=== PATIENT | male | born 1960 | race Two or more races ===

== ENCOUNTER 2017-01-08 11:30 | Inpatient (IN) | payer MEDICAID, OTHER ==
[2017-01-08 12:41] VITALS: BP 138/89
[2017-01-08] MEDS ORDERED: guaiFENesin 200 MG/10 ML UDC PO PRN (12:59)
[2017-01-08] MEDS: D5-0.45NS 1,000 ML IV SCH (14:35)
[2017-01-08] MEDS: Ipratropium Neb 0.5 mg/2.5 mL UD HHN SCH ×2 (15:58→19:05)
[2017-01-08] MEDS: Albuterol Nebulizer 2.5mg/3mL HHN SCH ×2 (15:58→19:05)
[2017-01-08] MEDS: methylPREDNISolone SS 40 mg Vial IVP SCH (20:42)
[2017-01-08 23:30] LABS: URINE BILIRUBIN NEGATIVE (NEGATIVE); URINE BLOOD MODERATE (NEGATIVE); URINE COLOR YELLOW; URINE GLUCOSE (UA) NEGATIVE (NEGATIVE); URINE KETONE NEGATIVE (NEGATIVE)
[2017-01-08 23:31] LABS: URINE BACTERIA FEW /hpf (NONE SEEN); URINE EPITHELIAL CELLS OCCASIONAL /lpf (FEW); URINE PROTEIN >300 mg/dL (NEGATIVE); URINE UROBILINOGEN 0.2 E.U./dL (0.2 - 1.0)
[2017-01-09] MEDS: methylPREDNISolone SS 40 mg Vial IVP SCH ×3 (04:50→20:48)
[2017-01-09] MEDS: D5-0.45NS 1,000 ML IV SCH (06:40)
[2017-01-09 06:45] LABS: HEMATOCRIT 39.9 % (39.0-49.0); HEMOGLOBIN 13.6 gm/dL (13.2-17.3); MEAN CELL VOLUME 87.5 fl (80-99); MEAN CORPUSCULAR HEMOGLOBIN 29.8 pg (26.0-30.0); MEAN PLATELET VOLUME 9.8 fl; PLATELET COUNT 319 Th/cmm (150-400); RED BLOOD COUNT 4.56 Mil/cmm (4.30-5.70); RED CELL DISTRIBUTION WIDTH 13.3 % (11.5-20.0); WHITE BLOOD COUNT 8.5 Th/cmm (4.8-10.8)
[2017-01-09 07:17] LABS: ALB/GLOB RATIO 0.8 (1.0-1.8); ALKALINE PHOSPHATASE 94 U/L (34-104); ANION GAP 10.6 (7.0-16.0); BILIRUBIN,TOTAL 0.4 mg/dL (0.3-1.0); BUN - UREA NITROGEN 20 mg/dL (7-25); BUN/CREATININE RATIO 18.2; CARBON DIOXIDE 23.1 mEq/L (21.0-31.0); CHLORIDE 107 mEq/L (98-107); CREATININE - SERUM 1.1 mg/dL (0.7-1.3); GLUCOSE 311 mg/dL (70-105); MAGNESIUM 2.1 mg/dL (1.9-2.7); POTASSIUM SERUM 4.7 mEq/L (3.5-5.1); SGOT 14 U/L (13-39); SGPT/ALT 26 U/L (7-52); SODIUM SERUM 136 mEq/L (136-145)
[2017-01-09 07:55] LABS: TSH 0.91 uIU/ml (0.34-5.60)
[2017-01-09 07:56] LABS: NEUTROPHILS 88 % (40-80); PLATELET ESTIMATE ADEQUATE (NORMAL); PLATELET MORPHOLOGY GIANT PLATELETS SEEN (NORMAL); TOTAL CELLS COUNTED 100
[2017-01-09 07:58] LABS: ANISOCYTOSIS 1+
[2017-01-09] MEDS: Albuterol Nebulizer 2.5mg/3mL HHN SCH ×4 (08:25→19:08)
[2017-01-09] MEDS: Ipratropium Neb 0.5 mg/2.5 mL UD HHN SCH ×4 (08:30→19:09)
--- NOTE | 2017-01-09 10:42 | Diagnostic Imaging Report ---
CT scan of the chest without intravenous contrast HISTORY: Shortness of breath, pleural effusions Total DLP equals 275 CTDI equals 6.6 Axial sections were obtained from a level above the clavicles down to level below the diaphragm. There are small to moderate bilateral pleural effusions. Suggestion of faint infiltrate in the lower lobes. Normal-sized lymph nodes are scattered within the mediastinum. No definite hilar abnormalities. Limited sections below the diaphragm demonstrate partial visualization of nonobstructing calculi within the renal pelvic regions bilaterally. IMPRESSION: 1. Small to moderate bilateral pleural effusions. Questionable faint infiltrate within the lower lobes. 2. Somewhat generous heart size 3. Bilateral nonobstructing renal calculi
--- NOTE | 2017-01-09 11:11 | Diagnostic Imaging Report ---
Portable chest x-ray HISTORY: Shortness of breath No acute focal prominent processes. No hilar or mediastinal abnormalities. Allowing for portable technique and a poor inspiration, the overall heart size appears normal. IMPRESSION: 1. No definite acute abnormalities.
--- NOTE | 2017-01-09 15:19 | Internal Medicine Prog Note ---
Internal Medicine Subjective - Subjective Service Date: 01/09/17 (awake, alert, c/o thick secretions ) Patient seen and examined:: with staff Patient is:: awake Internal Medicine Objective - Results Result Diagrams: 01/09/17 06:23 01/09/17 06:23 Recent Labs: Laboratory Last Values WBC 8.5 Th/cmm (4.8-10.8) 01/09/17 06:23 RBC 4.56 Mil/cmm (4.30-5.70) 01/09/17 06:23 Hgb 13.6 gm/dL (13.2-17.3) 01/09/17 06:23 Hct 39.9 % (39.0-49.0) 01/09/17 06:23 MCV 87.5 fl (80-99) 01/09/17 06:23 MCH 29.8 pg (26.0-30.0) 01/09/17 06:23 MCHC Differential 34.0 pg (28.0-36.0) 01/09/17 06:23 RDW 13.3 % (11.5-20.0) 01/09/17 06:23 Plt Count 319 Th/cmm (150-400) 01/09/17 06:23 MPV 9.8 fl 01/09/17 06:23 Neutrophils (Manual) 88 % (40-80) H 01/09/17 06:23 Lymphocytes 12 % (20-50) L 01/09/17 06:23 Platelet Estimate ADEQUATE (NORMAL) 01/09/17 06:23 Platelet Morphology GIANT PLATELETS SEEN (NORMAL) 01/09/17 06:23 Anisocytosis 1+ 01/09/17 06:23 RBC Morph Micro Appear ABNORMAL (NORMAL) 01/09/17 06:23 Sodium 136 mEq/L (136-145) 01/09/17 06:23 Potassium 4.7 mEq/L (3.5-5.1) 01/09/17 06:23 Chloride 107 mEq/L (98-107) 01/09/17 06:23 Carbon Dioxide 23.1 mEq/L (21.0-31.0) 01/09/17 06:23 Anion Gap 10.6 (7.0-16.0) 01/09/17 06:23 BUN 20 mg/dL (7-25) 01/09/17 06:23 Creatinine 1.1 mg/dL (0.7-1.3) 01/09/17 06:23 Est GFR ( Amer) > 60.0 ml/min (>90) 01/09/17 06:23 Est GFR (Non-Af Amer) > 60.0 ml/min 01/09/17 06:23 BUN/Creatinine Ratio 18.2 01/09/17 06:23 Glucose 311 mg/dL (70-105) H 01/09/17 06:23 Hemoglobin A1c % 7.5 % (4.0-6.0) H 01/09/17 06:23 Calcium 9.0 mg/dL (8.6-10.3) 01/09/17 06:23 Magnesium 2.1 mg/dL (1.9-2.7) 01/09/17 06:23 Total Bilirubin 0.4 mg/dL (0.3-1.0) 01/09/17 06:23 AST 14 U/L (13-39) 01/09/17 06:23 ALT 26 U/L (7-52) 01/09/17 06:23 Alkaline Phosphatase 94 U/L (34-104) 01/09/17 06:23 Ammonia 68 umol/L (16-53) H 01/09/17 06:23 Total Protein 6.8 gm/dL (6.0-8.3) 01/09/17 06:23 Albumin 3.1 gm/dL (4.2-5.5) L 01/09/17 06:23 Globulin 3.7 gm/dL 01/09/17 06:23 Albumin/Globulin Ratio 0.8 (1.0-1.8) L 01/09/17 06:23 TSH 0.91 uIU/ml (0.34-5.60) 01/09/17 06:23 Urine Source CLEAN C 01/08/17 23:00 Urine Color YELLOW 01/08/17 23:00 Urine Clarity CLEAR (CLEAR) 01/08/17 23:00 Urine pH 5.0 01/08/17 23:00 Ur Specific [place] 1.020 (1.005-1.030) 01/08/17 23:00 Urine Protein >300 mg/dL (NEGATIVE) H 01/08/17 23:00 Urine Glucose (UA) NEGATIVE mg/dL (NEGATIVE) 01/08/17 23:00 Urine Ketones NEGATIVE mg/dL (NEGATIVE) 01/08/17 23:00 Urine Blood MODERATE (NEGATIVE) H 01/08/17 23:00 Urine Nitrate NEGATIVE (NEGATIVE) 01/08/17 23:00 Urine Bilirubin NEGATIVE (NEGATIVE) 01/08/17 23:00 Urine Urobilinogen 0.2 E.U./dL (0.2 - 1.0) 01/08/17 23:00 Ur Leukocyte Esterase NEGATIVE (NEGATIVE) 01/08/17 23:00 Urine RBC 2-5 /hpf (0-5) H 01/08/17 23:00 Urine WBC 2-5 /hpf (0-5) H 01/08/17 23:00 Ur Epithelial Cells OCCASIONAL /lpf (FEW) 01/08/17 23:00 Urine Bacteria FEW /hpf (NONE SEEN) 01/08/17 23:00 Hyaline Casts 2-5 /lpf (0-2) H 01/08/17 23:00 - Physical Exam Vitals and I&O: Vital Signs Temp 97.5 F 01/09/17 12:06 Pulse 90 01/09/17 12:06 Resp 20 01/09/17 12:06 BP 120/90 01/09/17 12:06 Pulse Ox 97 01/09/17 12:06 Intake & Output 01/08/17 01/09/17 01/09/17 18:59 06:59 18:59 Intake Total 50 1530 50 Output Total 1600 Balance 50 -70 50 Weight (lbs) 168 lb 14.4 oz Intake: Intake, IV Amount 50 1050 50 Cefepime 1 gm In Dextrose 50 50 50 5% 50 ml @ 100 mls/hr IV Q12H [facility] Rx#:[id number] D5-0.45NS 1,000 ml @ 100 1000 mls/hr IV .Q10H [facility] Rx#: [id number] Oral 480 Output: Urine 1600 Active Medications: Current Medications Acetaminophen (Tylenol) 650 mg PO Q4HR PRN PRN Reason: Mild Pain or Fever >101 Stop: 03/09/17 12:58 Albuterol Sulfate (Albuterol 2.5mg/3ml Neb Ud) 2.5 mg HHN QIDRT [facility] Stop: 03/09/17 14:59 Last Admin: 01/09/17 11:25 Dose: 2.5 mg Guaifenesin (Robitussin) 200 mg PO Q4HR PRN PRN Reason: Cough or Congestion Stop: 03/09/17 12:58 Heparin Sodium (Porcine) (Heparin) 5,000 units SUBQ Q12HR [facility] Stop: 03/09/17 20:59 Last Admin: 01/09/17 08:55 Dose: Not Given Cefepime HCl 1 gm/ Dextrose 50 mls @ 100 mls/hr IV Q12H [facility] Stop: 03/09/17 13:59 Last Infusion: 01/09/17 13:30 Dose: Infused Dextrose/Sodium Chloride (D5-0.45ns) 1,000 mls @ 100 mls/hr IV .Q10H [facility] Stop: 03/09/17 12:59 Last Admin: 01/09/17 06:40 Dose: 100 mls/hr Ibuprofen (Motrin) 800 mg PO Q6HR PRN PRN Reason: Pain (Moderate) Stop: 03/09/17 12:57 Ipratropium [place] (Atrovent Neb 0.5mg/2.5ml) 0.5 mg HHN QIDRT [facility] Stop: 03/09/17 14:59 Last Admin: 01/09/17 11:26 Dose: 0.5 mg Meclizine HCl (Antivert) 25 mg PO DAILY PRN PRN Reason: Nausea / Vomiting Stop: 03/09/17 12:58 Methylprednisolone Sodium Succinate (Solu-Medrol) 80 mg IVP Q8HR [facility] Stop: 03/09/17 20:59 Last Admin: 01/09/17 12:44 Dose: 80 mg Ondansetron HCl (Zofran) 4 mg IV Q8H PRN PRN Reason: Nausea / Vomiting Stop: 03/09/17 12:58 Zolpidem Tartrate (Ambien) 10 mg PO HS PRN PRN Reason: Insomnia Stop: 03/09/17 12:58 General: alert HEENT: NC/AT, PERRLA Neck: Supple Lungs: ronchi Cardiovascular: RRR, Normal S1, Normal S2, without murmur Abdomen: soft non-tender, non-distended, positive bowel sound Neurological: no change Internal Medicine Assmt/Plan - Assessment Assessment: COMMUNITY ACQUIRED PNA COUGH NEW ONSET DM - Plan Plan: monitor glucose level add mucomyst cpt f/u labs supplemental o2
[2017-01-09] MEDS: Sodium Chloride 0.45% 1,000 ML IV SCH (17:02)
--- NOTE | 2017-01-09 21:16 | Admit Criteria Form ---
Admit Criteria Forms - Admit Criteria Diagnosis: PNEUMONIA, COMMUNITY ACQUIRED Clinical Indications for Admission to Inpatient Care ( Place 'X' for any and all applicable criteria): Admission is indicated for ANY ONE of the following (1)(2)(3): [ ]I. Hypoxemia indicated by ANY ONE of the following: [ ]a) Oxygen saturation less than 90% while breathing room air [ ]b) PO2 less than 60 mm Hg (8.0 kPa) while breathing room air [ ]c) Chronic lung disease with significant deterioration from baseline oxygenation [X]II. Appropriate diagnostic testing and treatment unavailable in outpatient or recovery facility (eg,testing or infection control measures unavailable(10) [ ]III. Moderate-risk or high-risk category patients (Pneumonia Severity Index (PSI) class IV or V, or CURB-65 score of 3 or greater). [ ]IV. Outpatient treatment failure as indicated by ANY ONE of the following(9) : [ ]a) Failure to respond to antibiotic (eg, resistant organism) [ ]b) Clinically significant adverse effects from medication (eg, vomiting) [ ]c) Complications of pneumonia (eg, empyema, bacteremia) [ ]d) Significant worsening of comorbid cond necessitating inpatient care (eg, chronic heart failure) [ ]V. Intermediate-risk category patients (eg, PSI class III or CURB-65 score 2) who do not improve with initial therapy and observation. [ ]. Immunocompromised patients (eg, AIDS, chronic steroid use) at moderate or high risk based on clinical evaluation. [ ]VII. Complicated pleural effusions (eg, exudative, loculated) [ ]VIII.Hemodynamic instability [ ] IX. Altered mental status that is severe or persistent. [ ]X. Dehydration that is severe or persistent. [ ]XI. Bacteremia [ ]XII. Respiratory finding (eg. tachypnea) that do not respond to outpatient or observation care treatment Extended stay beyond goal length of stay may be needed for (20) [ ]a) Unclear diagnosis [ ]b) Pleural disease [ ]c) Severe pneumonia or treatment failure (25 [ ]d) Respiratory failure (anticipate invasive or noninvasive ventilatory support) [ ]e) Abnormal serum electrolytes (serum Na concentration less than 135 mEq/L (mmol/L) (32)(33) [ ]f) Clinically significant comorbid illness (eg, heart failure, atrial fibrillation with rapid heart rate, alcohol withdrawal, renal insufficiency)(34)(35) [ ]g) Comorbid acute exacerbation of COPD(36) [ ]h) Concomitant diagnosis of malignancy that may be associated with malnutrition, immunologic impairment, or bronchial obstruction. [ ]i) Concomitant altered mental status [ ]j) Culture-identified Gram-negative or antibiotic-resistant organism (eg, Pseudomonas, methicillin-resistant Staphylococcus aureus)(30) [ ]k) Healthcare-associated pneumonia The original [facility] content created by [employer] has been revised. The portions of the content which have been revised are identified through the use of italic text or in bold, and [facility] has neither reviewed nor approved the modified material. All other unmodified content is copyright [facility]. Please see references footnoted in the original [facility] [employer] edition 2016 Admit Criteria Met?: Yes
[2017-01-10] MEDS: methylPREDNISolone SS 40 mg Vial IVP SCH ×3 (04:55→20:34)
[2017-01-10] MEDS: Sodium Chloride 0.45% 1,000 ML IV SCH ×2 (04:57→17:48)
[2017-01-10 05:38] LABS: HEMATOCRIT 37.3 % (39.0-49.0); HEMOGLOBIN 12.8 gm/dL (13.2-17.3); MEAN CELL VOLUME 87.2 fl (80-99); MEAN CORPUSCULAR HEMOGLOBIN 29.9 pg (26.0-30.0); MEAN CORPUSCULAR HGB CONC 34.3 pg (28.0-36.0); MEAN PLATELET VOLUME 9.5 fl; PLATELET COUNT 309 Th/cmm (150-400); RED BLOOD COUNT 4.27 Mil/cmm (4.30-5.70); RED CELL DISTRIBUTION WIDTH 12.9 % (11.5-20.0)
[2017-01-10 05:49] LABS: WHITE BLOOD COUNT 21.2 Th/cmm (4.8-10.8)
[2017-01-10 07:04] LABS: ANISOCYTOSIS 1+; NEUTROPHILS 89 % (40-80); PLATELET ESTIMATE ADEQUATE (NORMAL); PLATELET MORPHOLOGY GIANT PLATELETS SEEN (NORMAL); TOTAL CELLS COUNTED 100
[2017-01-10] MEDS: Albuterol Nebulizer 2.5mg/3mL HHN SCH ×4 (07:13→19:05)
[2017-01-10] MEDS: Ipratropium Neb 0.5 mg/2.5 mL UD HHN SCH ×4 (07:13→19:03)
[2017-01-10 07:32] LABS: ANION GAP 11.9 (7.0-16.0); BUN - UREA NITROGEN 21 mg/dL (7-25); BUN/CREATININE RATIO 19.1; CALCIUM SERUM 8.8 mg/dL (8.6-10.3); CARBON DIOXIDE 20.5 mEq/L (21.0-31.0); CHLORIDE 105 mEq/L (98-107); CREATININE - SERUM 1.1 mg/dL (0.7-1.3); GLUCOSE 351 mg/dL (70-105); POTASSIUM SERUM 4.4 mEq/L (3.5-5.1); SODIUM SERUM 133 mEq/L (136-145)
[2017-01-10 09:17] LABS: FOLIC ACID 19.4 ng/mL (>3.0)
--- NOTE | 2017-01-10 15:03 | Internal Medicine Prog Note ---
Internal Medicine Subjective - Subjective Patient seen and examined:: with staff, chart reviewed Patient is:: verbal, interactive Patient Complaints of:: congestion Per staff patient is:: no adverse event, eating well, poor appetite Internal Medicine Objective - Results Result Diagrams: 01/10/17 05:24 01/10/17 05:24 Recent Labs: Laboratory Last Values WBC 21.2 Th/cmm (4.8-10.8) H* D 01/10/17 05:24 RBC 4.27 Mil/cmm (4.30-5.70) L 01/10/17 05:24 Hgb 12.8 gm/dL (13.2-17.3) L 01/10/17 05:24 Hct 37.3 % (39.0-49.0) L 01/10/17 05:24 MCV 87.2 fl (80-99) 01/10/17 05:24 MCH 29.9 pg (26.0-30.0) 01/10/17 05:24 MCHC Differential 34.3 pg (28.0-36.0) 01/10/17 05:24 RDW 12.9 % (11.5-20.0) 01/10/17 05:24 Plt Count 309 Th/cmm (150-400) 01/10/17 05:24 MPV 9.5 fl 01/10/17 05:24 Neutrophils (Manual) 89 % (40-80) H 01/10/17 05:24 Lymphocytes 6 % (20-50) L 01/10/17 05:24 Monocytes 5 % (2-10) 01/10/17 05:24 Platelet Estimate ADEQUATE (NORMAL) 01/10/17 05:24 Platelet Morphology GIANT PLATELETS SEEN (NORMAL) 01/10/17 05:24 Anisocytosis 1+ 01/10/17 05:24 RBC Morph Micro Appear ABNORMAL (NORMAL) 01/10/17 05:24 Sodium 133 mEq/L (136-145) L 01/10/17 05:24 Potassium 4.4 mEq/L (3.5-5.1) 01/10/17 05:24 Chloride 105 mEq/L (98-107) 01/10/17 05:24 Carbon Dioxide 20.5 mEq/L (21.0-31.0) L 01/10/17 05:24 Anion Gap 11.9 (7.0-16.0) 01/10/17 05:24 BUN 21 mg/dL (7-25) 01/10/17 05:24 Creatinine 1.1 mg/dL (0.7-1.3) 01/10/17 05:24 Est GFR ( Amer) > 60.0 ml/min (>90) 01/10/17 05:24 Est GFR (Non-Af Amer) > 60.0 ml/min 01/10/17 05:24 BUN/Creatinine Ratio 19.1 01/10/17 05:24 Glucose 351 mg/dL (70-105) H 01/10/17 05:24 POC Glucose 232 MG/DL (70 - 105) H 01/10/17 12:08 Hemoglobin A1c % 7.5 % (4.0-6.0) H 01/09/17 06:23 Calcium 8.8 mg/dL (8.6-10.3) 01/10/17 05:24 Magnesium 2.1 mg/dL (1.9-2.7) 01/09/17 06:23 Total Bilirubin 0.4 mg/dL (0.3-1.0) 01/09/17 06:23 AST 14 U/L (13-39) 01/09/17 06:23 ALT 26 U/L (7-52) 01/09/17 06:23 Alkaline Phosphatase 94 U/L (34-104) 01/09/17 06:23 Ammonia 68 umol/L (16-53) H 01/09/17 06:23 Total Protein 6.8 gm/dL (6.0-8.3) 01/09/17 06:23 Albumin 3.1 gm/dL (4.2-5.5) L 01/09/17 06:23 Globulin 3.7 gm/dL 01/09/17 06:23 Albumin/Globulin Ratio 0.8 (1.0-1.8) L 01/09/17 06:23 Vitamin B12 641 pg/mL (211-946) 01/09/17 06:23 Folic Acid 19.4 ng/mL (>3.0) 01/09/17 06:23 TSH 0.91 uIU/ml (0.34-5.60) 01/09/17 06:23 Urine Source CLEAN C 01/08/17 23:00 Urine Color YELLOW 01/08/17 23:00 Urine Clarity CLEAR (CLEAR) 01/08/17 23:00 Urine pH 5.0 01/08/17 23:00 Ur Specific [place] 1.020 (1.005-1.030) 01/08/17 23:00 Urine Protein >300 mg/dL (NEGATIVE) H 01/08/17 23:00 Urine Glucose (UA) NEGATIVE mg/dL (NEGATIVE) 01/08/17 23:00 Urine Ketones NEGATIVE mg/dL (NEGATIVE) 01/08/17 23:00 Urine Blood MODERATE (NEGATIVE) H 01/08/17 23:00 Urine Nitrate NEGATIVE (NEGATIVE) 01/08/17 23:00 Urine Bilirubin NEGATIVE (NEGATIVE) 01/08/17 23:00 Urine Urobilinogen 0.2 E.U./dL (0.2 - 1.0) 01/08/17 23:00 Ur Leukocyte Esterase NEGATIVE (NEGATIVE) 01/08/17 23:00 Urine RBC 2-5 /hpf (0-5) H 01/08/17 23:00 Urine WBC 2-5 /hpf (0-5) H 01/08/17 23:00 Ur Epithelial Cells OCCASIONAL /lpf (FEW) 01/08/17 23:00 Urine Bacteria FEW /hpf (NONE SEEN) 01/08/17 23:00 Hyaline Casts 2-5 /lpf (0-2) H 01/08/17 23:00 - Physical Exam Vitals and I&O: Vital Signs Temp 97.7 F 01/10/17 08:00 Pulse 104 01/10/17 14:01 Resp 20 01/10/17 14:01 BP 139/91 01/10/17 08:00 Pulse Ox 96 01/10/17 14:01 Intake & Output 01/09/17 01/10/17 01/10/17 18:59 06:59 18:59 Intake Total 50 1364.167 Output Total 1200 Balance 50 164.167 Intake: Intake, IV Amount 50 884.167 Cefepime 1 gm In Dextrose 50 50 5% 50 ml @ 100 mls/hr IV Q12H [facility] Rx#:[id number] Sodium Chloride 0.45% 1, 834.167 000 ml @ 70 mls/hr IV . [id number] [facility] Rx#:[id number] Oral 480 Output: Urine 1200 Other: # Voids 4 # Bowel Movements 1 Active Medications: Current Medications Acetaminophen (Tylenol) 650 mg PO Q4HR PRN PRN Reason: Mild Pain or Fever >101 Stop: 03/09/17 12:58 Acetylcysteine (Mucomyst 20%) 2 ml HHN Q6HRT [facility] Stop: 03/10/17 18:59 Last Admin: 01/10/17 13:59 Dose: 2 ml Albuterol Sulfate (Albuterol 2.5mg/3ml Neb Ud) 2.5 mg N QIDRT [facility] Stop: 03/09/17 14:59 Last Admin: 01/10/17 14:00 Dose: 2.5 mg Guaifenesin (Robitussin) 200 mg PO Q4HR PRN PRN Reason: Cough or Congestion Stop: 03/09/17 12:58 Heparin Sodium (Porcine) (Heparin) 5,000 units SUBQ Q12HR [facility] Stop: 03/09/17 20:59 Last Admin: 01/10/17 09:34 Dose: Not Given Cefepime HCl 1 gm/ Dextrose 50 mls @ 100 mls/hr IV Q12H [facility] Stop: 03/09/17 13:59 Last Infusion: 01/10/17 02:34 Dose: Infused Sodium Chloride (Nacl 0.45%) 1,000 mls @ 70 mls/hr IV .[id number] [facility] Stop: 03/10/17 16:29 Last Admin: 01/10/17 04:57 Dose: 70 mls/hr Ibuprofen (Motrin) 800 mg PO Q6HR PRN PRN Reason: Pain (Moderate) Stop: 03/09/17 12:57 Insulin Aspart (Novolog Insulin Sliding Scale) 0 units SUBQ ACHS [facility] PRN Reason: Protocol Stop: 03/11/17 16:29 Ipratropium [place] (Atrovent Neb 0.5mg/2.5ml) 0.5 mg N QIDRT [facility] Stop: 03/09/17 14:59 Last Admin: 01/10/17 14:00 Dose: 0.5 mg Meclizine HCl (Antivert) 25 mg PO DAILY PRN PRN Reason: Nausea / Vomiting Stop: 03/09/17 12:58 Methylprednisolone Sodium Succinate (Solu-Medrol) 20 mg IVP Q12HR [facility] Stop: 03/11/17 20:59 Ondansetron HCl (Zofran) 4 mg IV Q8H PRN PRN Reason: Nausea / Vomiting Stop: 03/09/17 12:58 Zolpidem Tartrate (Ambien) 10 mg PO HS PRN PRN Reason: Insomnia Stop: 03/09/17 12:58 Last Admin: 01/09/17 22:00 Dose: 10 mg General: congested, alert HEENT: NC/AT, PERRLA Neck: Supple, No JVD Lungs: congested, rales, ronchi Cardiovascular: RRR, Normal S1, Normal S2 Abdomen: soft non-tender, globular, positive bowel sound Extremities: excoriation Neurological: no change Internal Medicine Assmt/Plan - Assessment Assessment: COMMUNITY ACQUIRED PNA COUGH NEW ONSET DM - Plan Plan: cont on iv abx o2 bronchodilator iv steroid will decrease dw rn and pt
[2017-01-10] MEDS: INSULIN ASPART SLIDING SCALE 100 UNITS/ML UNIT SUBQ SCH ×2 (18:15→20:36)
[2017-01-11] MEDS: INSULIN ASPART SLIDING SCALE 100 UNITS/ML UNIT SUBQ SCH ×4 (06:38→20:25)
[2017-01-11] MEDS: Albuterol Nebulizer 2.5mg/3mL HHN SCH ×4 (07:08→19:53)
[2017-01-11] MEDS: Ipratropium Neb 0.5 mg/2.5 mL UD HHN SCH ×4 (07:08→19:53)
[2017-01-11 07:30] LABS: ANION GAP 8.9 (7.0-16.0); BUN - UREA NITROGEN 25 mg/dL (7-25); CALCIUM SERUM 8.9 mg/dL (8.6-10.3); CARBON DIOXIDE 25.5 mEq/L (21.0-31.0); CHLORIDE 105 mEq/L (98-107); GLUCOSE 207 mg/dL (70-105); POTASSIUM SERUM 4.4 mEq/L (3.5-5.1); SODIUM SERUM 135 mEq/L (136-145)
[2017-01-11 08:08] LABS: HEMOGLOBIN 12.9 gm/dL (13.2-17.3); RED CELL DISTRIBUTION WIDTH 13.1 % (11.5-20.0)
[2017-01-11 08:33] LABS: RED BLOOD COUNT 4.29 Mil/cmm (4.30-5.70)
[2017-01-11 08:34] LABS: HEMATOCRIT 37.9 % (39.0-49.0); MEAN CELL VOLUME 88.2 fl (80-99); MEAN CORPUSCULAR HEMOGLOBIN 30.1 pg (26.0-30.0); MEAN CORPUSCULAR HGB CONC 34.1 pg (28.0-36.0); MEAN PLATELET VOLUME 10.6 fl; PLATELET COUNT 284 Th/cmm (150-400)
[2017-01-11 08:36] LABS: WHITE BLOOD COUNT 21.1 Th/cmm (4.8-10.8)
[2017-01-11] MEDS: methylPREDNISolone SS 40 mg Vial IVP SCH ×2 (09:26→20:25)
[2017-01-11] MEDS: Sodium Chloride 0.45% 1,000 ML IV SCH (10:16)
[2017-01-11 10:27] LABS: ANISOCYTOSIS 1+; NEUTROPHILS 87 % (40-80); PLATELET ESTIMATE ADEQUATE (NORMAL); PLATELET MORPHOLOGY GIANT PLATELETS SEEN (NORMAL); TOTAL CELLS COUNTED 100
--- NOTE | 2017-01-11 14:21 | Internal Medicine Prog Note ---
Internal Medicine Subjective - Subjective Patient seen and examined:: with staff, chart reviewed Patient is:: awake, verbal, interactive Patient Complaints of:: congestion Per staff patient is:: no adverse event Internal Medicine Objective - Results Result Diagrams: 01/11/17 05:50 01/11/17 05:50 Recent Labs: Laboratory Last Values WBC 21.1 Th/cmm (4.8-10.8) H* 01/11/17 05:50 RBC 4.29 Mil/cmm (4.30-5.70) L 01/11/17 05:50 Hgb 12.9 gm/dL (13.2-17.3) L 01/11/17 05:50 Hct 37.9 % (39.0-49.0) L 01/11/17 05:50 MCV 88.2 fl (80-99) 01/11/17 05:50 MCH 30.1 pg (26.0-30.0) H 01/11/17 05:50 MCHC Differential 34.1 pg (28.0-36.0) 01/11/17 05:50 RDW 13.1 % (11.5-20.0) 01/11/17 05:50 Plt Count 284 Th/cmm (150-400) 01/11/17 05:50 MPV 10.6 fl 01/11/17 05:50 Neutrophils (Manual) 87 % (40-80) H 01/11/17 05:50 Lymphocytes 7 % (20-50) L 01/11/17 05:50 Monocytes 6 % (2-10) 01/11/17 05:50 Platelet Estimate ADEQUATE (NORMAL) 01/11/17 05:50 Platelet Morphology GIANT PLATELETS SEEN (NORMAL) 01/11/17 05:50 Anisocytosis 1+ 01/11/17 05:50 RBC Morph Micro Appear ABNORMAL (NORMAL) 01/11/17 05:50 Sodium 135 mEq/L (136-145) L 01/11/17 05:50 Potassium 4.4 mEq/L (3.5-5.1) 01/11/17 05:50 Chloride 105 mEq/L (98-107) 01/11/17 05:50 Carbon Dioxide 25.5 mEq/L (21.0-31.0) 01/11/17 05:50 Anion Gap 8.9 (7.0-16.0) 01/11/17 05:50 BUN 25 mg/dL (7-25) 01/11/17 05:50 Creatinine 1.0 mg/dL (0.7-1.3) 01/11/17 05:50 Est GFR ( Amer) > 60.0 ml/min (>90) 01/11/17 05:50 Est GFR (Non-Af Amer) > 60.0 ml/min 01/11/17 05:50 BUN/Creatinine Ratio 25.0 01/11/17 05:50 Glucose 207 mg/dL (70-105) H 01/11/17 05:50 POC Glucose 264 MG/DL (70 - 105) H 01/11/17 11:11 Hemoglobin A1c % 7.5 % (4.0-6.0) H 01/09/17 06:23 Calcium 8.9 mg/dL (8.6-10.3) 01/11/17 05:50 Magnesium 2.1 mg/dL (1.9-2.7) 01/09/17 06:23 Total Bilirubin 0.4 mg/dL (0.3-1.0) 01/09/17 06:23 AST 14 U/L (13-39) 01/09/17 06:23 ALT 26 U/L (7-52) 01/09/17 06:23 Alkaline Phosphatase 94 U/L (34-104) 01/09/17 06:23 Ammonia 68 umol/L (16-53) H 01/09/17 06:23 Total Protein 6.8 gm/dL (6.0-8.3) 01/09/17 06:23 Albumin 3.1 gm/dL (4.2-5.5) L 01/09/17 06:23 Globulin 3.7 gm/dL 01/09/17 06:23 Albumin/Globulin Ratio 0.8 (1.0-1.8) L 01/09/17 06:23 Vitamin B12 641 pg/mL (211-946) 01/09/17 06:23 Folic Acid 19.4 ng/mL (>3.0) 01/09/17 06:23 TSH 0.91 uIU/ml (0.34-5.60) 01/09/17 06:23 Urine Source CLEAN C 01/08/17 23:00 Urine Color YELLOW 01/08/17 23:00 Urine Clarity CLEAR (CLEAR) 01/08/17 23:00 Urine pH 5.0 01/08/17 23:00 Ur Specific [place] 1.020 (1.005-1.030) 01/08/17 23:00 Urine Protein >300 mg/dL (NEGATIVE) H 01/08/17 23:00 Urine Glucose (UA) NEGATIVE mg/dL (NEGATIVE) 01/08/17 23:00 Urine Ketones NEGATIVE mg/dL (NEGATIVE) 01/08/17 23:00 Urine Blood MODERATE (NEGATIVE) H 01/08/17 23:00 Urine Nitrate NEGATIVE (NEGATIVE) 01/08/17 23:00 Urine Bilirubin NEGATIVE (NEGATIVE) 01/08/17 23:00 Urine Urobilinogen 0.2 E.U./dL (0.2 - 1.0) 01/08/17 23:00 Ur Leukocyte Esterase NEGATIVE (NEGATIVE) 01/08/17 23:00 Urine RBC 2-5 /hpf (0-5) H 01/08/17 23:00 Urine WBC 2-5 /hpf (0-5) H 01/08/17 23:00 Ur Epithelial Cells OCCASIONAL /lpf (FEW) 01/08/17 23:00 Urine Bacteria FEW /hpf (NONE SEEN) 01/08/17 23:00 Hyaline Casts 2-5 /lpf (0-2) H 01/08/17 23:00 - Physical Exam Vitals and I&O: Vital Signs Temp 97.6 F 01/11/17 08:00 Pulse 96 01/11/17 14:00 Resp 20 01/11/17 14:00 BP 150/97 01/11/17 08:00 Pulse Ox 97 01/11/17 14:00 Intake & Output 01/10/17 01/11/17 01/11/17 18:59 06:59 18:59 Intake Total 2600 950 2050 Balance 2600 950 2050 Intake: Intake, IV Amount 1050 50 2050 Cefepime 1 gm In Dextrose 50 50 50 5% 50 ml @ 100 mls/hr IV Q12H [facility] Rx#:[id number] Sodium Chloride 0.45% 1, 1000 2000 000 ml @ 70 mls/hr IV . [id number] [facility] Rx#:[id number] Oral 1550 900 Other: # Voids 3 Stool Characteristics Soft Soft Formed Formed Active Medications: Current Medications Acetaminophen (Tylenol) 650 mg PO Q4HR PRN PRN Reason: Mild Pain or Fever >101 Stop: 03/09/17 12:58 Last Admin: 01/10/17 22:24 Dose: 650 mg Acetylcysteine (Mucomyst 20%) 2 ml N Q6HRT [facility] Stop: 03/10/17 18:59 Last Admin: 01/11/17 13:58 Dose: 2 ml Albuterol Sulfate (Albuterol 2.5mg/3ml Neb Ud) 2.5 mg HHN QIDRT [facility] Stop: 03/09/17 14:59 Last Admin: 01/11/17 14:00 Dose: 2.5 mg Guaifenesin (Robitussin) 200 mg PO Q4HR PRN PRN Reason: Cough or Congestion Stop: 03/09/17 12:58 Last Admin: 01/11/17 10:23 Dose: 200 mg Heparin Sodium (Porcine) (Heparin) 5,000 units SUBQ Q12HR [facility] Stop: 03/09/17 20:59 Last Admin: 01/11/17 08:43 Dose: Not Given Cefepime HCl 1 gm/ Dextrose 50 mls @ 100 mls/hr IV Q12H [facility] Stop: 03/09/17 13:59 Last Infusion: 01/11/17 14:00 Dose: Infused Sodium Chloride (Nacl 0.45%) 1,000 mls @ 70 mls/hr IV .[id number] [facility] Stop: 03/10/17 16:29 Last Infusion: 01/11/17 10:17 Dose: Infused Ibuprofen (Motrin) 800 mg PO Q6HR PRN PRN Reason: Pain (Moderate) Stop: 03/09/17 12:57 Insulin Aspart (Novolog Insulin Sliding Scale) 0 units SUBQ ACHS [facility] PRN Reason: Protocol Stop: 03/11/17 16:29 Last Admin: 01/11/17 11:21 Dose: 7 units Ipratropium [place] (Atrovent Neb 0.5mg/2.5ml) 0.5 mg N QIDRT [facility] Stop: 03/09/17 14:59 Last Admin: 01/11/17 14:00 Dose: 0.5 mg Meclizine HCl (Antivert) 25 mg PO DAILY PRN PRN Reason: Nausea / Vomiting Stop: 03/09/17 12:58 Methylprednisolone Sodium Succinate (Solu-Medrol) 20 mg IVP Q12HR [facility] Stop: 03/11/17 20:59 Last Admin: 01/11/17 09:26 Dose: 20 mg Ondansetron HCl (Zofran) 4 mg IV Q8H PRN PRN Reason: Nausea / Vomiting Stop: 03/09/17 12:58 Zolpidem Tartrate (Ambien) 10 mg PO HS PRN PRN Reason: Insomnia Stop: 03/09/17 12:58 Last Admin: 01/10/17 22:22 Dose: 10 mg General: alert HEENT: NC/AT, PERRLA Neck: Supple Lungs: congested, rales, ronchi Cardiovascular: RRR, Normal S1, Normal S2 Abdomen: soft non-tender, globular Extremities: excoriation, contracture Neurological: no change Internal Medicine Assmt/Plan - Assessment Assessment: COMMUNITY ACQUIRED PNA COUGH NEW ONSET DM sob - Plan Plan: cont on iv abx o2 bronchodilator iv steroid will decrease dw rn and pt Nutritional Asmnt/Malnutr-PDOC - Dietary Evaluation Malnutrition Findings (Please click <Entered> for more info): Nutritional Asmnt/Malnutrition Start: 01/11/17 11: 34 Text: Status: Complete Freq: Document 01/11/17 11:34 [facility] (Rec: 01/11/17 11:46 [facility] [id number]) Nutritional Asmnt/Malnutrition Patient General Information Nutritional Screening Consult Diagnosis Community acquired pneumonia, cough, new onset DM Subjective Information Nutrition consult for HgbA1C 7 .5 and new onset DM received and completed. Pt is a 56-year -old male, awake and alert during time of visit. Pt is a good historian and appropriate for diet education, however, follow up and reinforcement needed. Visitors at bedside. 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 Foods of choice are [place] [employer], chocolate bars , and convenience foods. Current Diet Order/ Nutrition Support [facility] [place] Patient / S.O Indicated Pertinent Medications Cefepime, Novolog, Solu-Medrol , Zofran, NaCl 0.45% Pertinent Labs (3/3) Glucose 311H, A1C 7.5H, Ammonia 68H (3/4) Glucose (fasting) 351H (3/5) Glucose (fasting) 207H (3/4-3/5) POC Glucose 166-443H Nutritional Hx/Data Height 1.73 m Height (Calculated Centimeters) 172.7 Current Weight (lbs) 76.612 kg Weight (Calculated Kilograms) 76.6 Weight (Calculated Grams) 66802.8 Usual body Weight (lbs) 170 % Usual Body Weight 99 [place] Body Weight 154 % [place] Body Weight 110 Recent Weight Change No Weight Status Overweight GI Symptoms GI Symptoms None Food Allergies No Cultural/Ethnic/Yazdanism Belief No cultural, ethnic, or caodaism beliefs provided. Usual diet at home Regular diet, 5-6 meals per day Skin Integrity/Comment: Dallin 22. Skin intact. Current %PO Good (75-100%) Estimated Nutritional Goals BEE in Kcals: Using Current wt Calories/Kcals/Kg Based on CBW 76.7 kg with consideration of pneumonia Kcals Calculated 3896-4752 kcals/day (30-35 kcals/kg) Protein: Using Current wt Protein g/kg: Based on CBW 76.7 kg with consideration of pneumonia Protein Calculated 92-115 gm/day (1.2-1.5 gm/kg) Fluid: ml 6438-2230 ml/day (1 ml/kcal) Nutritional Problem 1. Problem Problem Food, nutrition, and nutrition -related knowledge deficit related to Etiology lack of prior education as evidenced by Signs/Symptoms: pt lack of understanding of diabetes management and healthy food choices as part of disease management. Malnutrition Alert Is there a minimum of two criteria No selected? Query Text:Check all the applicable criteria. A minimum of two criteria are recommended for diagnosis of either severe or non-severe malnutrition. Malnutrition Related to Morbid Obesity Malnutrition related to morbid obesity No Intervention/Recommendation Recommendations by RD Dietary Education by RD1 Increase Calorie Intake Comments 1. Recommend CCHO-75 gm diet to better meet estimated nutritional needs and promote glycemic control. Recommend double portions of protein at meals. Expected Outcomes/Goals Expected Outcomes/Goals Pt will verbalize 2 sources of carbohydrates at follow up. Physician Parameters for PEM Normal Weight % 90% - 110% (Normal) Serum Albumin (g/dl) 3.1 - 3.4 (Mild) 01/11/17 11:45 Dietitian Notes by Denice Hough Nutrition Note Nutrition Consult and Initial Nutrition Assessment completed by Denice Hough on 01/11/17. Please refer to nutrition assessment under Patient Care tab of EMR. Education on diet and nutrition provided. Nutrition Recommendations: 1. Recommend CCHO-75 gm diet to better meet estimated nutritional needs and promote glycemic control. Recommend double portions of protein at meals. F/U in 3-5 days as Moderate risk, 01/14-01/16. Initialized on 01/11/17 11:45 - END OF NOTE
[2017-01-12] MEDS: Sodium Chloride 0.45% 1,000 ML IV SCH (01:13)
[2017-01-12 06:18] LABS: HEMOGLOBIN 14.1 gm/dL (13.2-17.3); MEAN CELL VOLUME 88.5 fl (80-99); MEAN CORPUSCULAR HEMOGLOBIN 29.8 pg (26.0-30.0); MEAN CORPUSCULAR HGB CONC 33.7 pg (28.0-36.0); MEAN PLATELET VOLUME 10.1 fl; PLATELET COUNT 309 Th/cmm (150-400); RED BLOOD COUNT 4.73 Mil/cmm (4.30-5.70); WHITE BLOOD COUNT 19.9 Th/cmm (4.8-10.8)
[2017-01-12] MEDS: INSULIN ASPART SLIDING SCALE 100 UNITS/ML UNIT SUBQ SCH ×4 (06:31→20:49)
[2017-01-12 06:46] LABS: ANION GAP 10.1 (7.0-16.0); BUN - UREA NITROGEN 25 mg/dL (7-25); BUN/CREATININE RATIO 27.8; CALCIUM SERUM 9.1 mg/dL (8.6-10.3); CARBON DIOXIDE 26.2 mEq/L (21.0-31.0); CHLORIDE 103 mEq/L (98-107); CREATININE - SERUM 0.9 mg/dL (0.7-1.3); GLUCOSE 201 mg/dL (70-105); MAGNESIUM 2.1 mg/dL (1.9-2.7); POTASSIUM SERUM 4.3 mEq/L (3.5-5.1); SODIUM SERUM 135 mEq/L (136-145)
[2017-01-12 07:33] LABS: HEMATOCRIT 41.9 % (39.0-49.0)
[2017-01-12] MEDS: Albuterol Nebulizer 2.5mg/3mL HHN SCH ×4 (07:57→19:44)
[2017-01-12] MEDS: Ipratropium Neb 0.5 mg/2.5 mL UD HHN SCH ×4 (07:58→19:44)
--- NOTE | 2017-01-12 09:09 | Diagnostic Imaging Report ---
Portable chest x-ray History: Cough Allowing for portable technique the heart size is normal. No focal pulmonary parenchymal processes. No hilar or mediastinal abnormalities. Impression: No acute abnormalities.
[2017-01-12 09:26] LABS: BAND NEUTROPHILE 1 % (0-10); NEUTROPHILS 82 % (40-80); PLATELET ESTIMATE ADEQUATE (NORMAL); PLATELET MORPHOLOGY NORMAL (NORMAL); TOTAL CELLS COUNTED 100
[2017-01-12] MEDS: methylPREDNISolone SS 40 mg Vial IVP SCH ×2 (09:38→20:41)
--- NOTE | 2017-01-12 11:41 | Internal Medicine Prog Note ---
Internal Medicine Subjective - Subjective Service Date: 01/12/17 Patient seen and examined:: with staff Patient is:: awake Per staff patient is:: no adverse event Internal Medicine Objective - Results Result Diagrams: 01/12/17 05:40 01/12/17 05:40 Recent Labs: Laboratory Last Values WBC 19.9 Th/cmm (4.8-10.8) H 01/12/17 05:40 RBC 4.73 Mil/cmm (4.30-5.70) 01/12/17 05:40 Hgb 14.1 gm/dL (13.2-17.3) 01/12/17 05:40 Hct 41.9 % (39.0-49.0) D 01/12/17 05:40 MCV 88.5 fl (80-99) 01/12/17 05:40 MCH 29.8 pg (26.0-30.0) 01/12/17 05:40 MCHC Differential 33.7 pg (28.0-36.0) 01/12/17 05:40 RDW 13.0 % (11.5-20.0) 01/12/17 05:40 Plt Count 309 Th/cmm (150-400) 01/12/17 05:40 MPV 10.1 fl 01/12/17 05:40 Band Neutrophils % 1 % (0-10) 01/12/17 05:40 Neutrophils (Manual) 82 % (40-80) H 01/12/17 05:40 Lymphocytes 13 % (20-50) L 01/12/17 05:40 Monocytes 4 % (2-10) 01/12/17 05:40 Platelet Estimate ADEQUATE (NORMAL) 01/12/17 05:40 Platelet Morphology NORMAL (NORMAL) 01/12/17 05:40 Anisocytosis 1+ 01/11/17 05:50 RBC Morph Micro Appear NORMAL (NORMAL) 01/12/17 05:40 Sodium 135 mEq/L (136-145) L 01/12/17 05:40 Potassium 4.3 mEq/L (3.5-5.1) 01/12/17 05:40 Chloride 103 mEq/L (98-107) 01/12/17 05:40 Carbon Dioxide 26.2 mEq/L (21.0-31.0) 01/12/17 05:40 Anion Gap 10.1 (7.0-16.0) 01/12/17 05:40 BUN 25 mg/dL (7-25) 01/12/17 05:40 Creatinine 0.9 mg/dL (0.7-1.3) 01/12/17 05:40 Est GFR ( Amer) > 60.0 ml/min (>90) 01/12/17 05:40 Est GFR (Non-Af Amer) > 60.0 ml/min 01/12/17 05:40 BUN/Creatinine Ratio 27.8 01/12/17 05:40 Glucose 201 mg/dL (70-105) H 01/12/17 05:40 POC Glucose 291 MG/DL (70 - 105) H 01/12/17 11:31 Hemoglobin A1c % 7.5 % (4.0-6.0) H 01/09/17 06:23 Calcium 9.1 mg/dL (8.6-10.3) 01/12/17 05:40 Magnesium 2.1 mg/dL (1.9-2.7) 01/12/17 05:40 Total Bilirubin 0.4 mg/dL (0.3-1.0) 01/09/17 06:23 AST 14 U/L (13-39) 01/09/17 06:23 ALT 26 U/L (7-52) 01/09/17 06:23 Alkaline Phosphatase 94 U/L (34-104) 01/09/17 06:23 Ammonia 68 umol/L (16-53) H 01/09/17 06:23 Total Protein 6.8 gm/dL (6.0-8.3) 01/09/17 06:23 Albumin 3.1 gm/dL (4.2-5.5) L 01/09/17 06:23 Globulin 3.7 gm/dL 01/09/17 06:23 Albumin/Globulin Ratio 0.8 (1.0-1.8) L 01/09/17 06:23 Vitamin B12 641 pg/mL (211-946) 01/09/17 06:23 Folic Acid 19.4 ng/mL (>3.0) 01/09/17 06:23 TSH 0.91 uIU/ml (0.34-5.60) 01/09/17 06:23 Urine Source CLEAN C 01/08/17 23:00 Urine Color YELLOW 01/08/17 23:00 Urine Clarity CLEAR (CLEAR) 01/08/17 23:00 Urine pH 5.0 01/08/17 23:00 Ur Specific [place] 1.020 (1.005-1.030) 01/08/17 23:00 Urine Protein >300 mg/dL (NEGATIVE) H 01/08/17 23:00 Urine Glucose (UA) NEGATIVE mg/dL (NEGATIVE) 01/08/17 23:00 Urine Ketones NEGATIVE mg/dL (NEGATIVE) 01/08/17 23:00 Urine Blood MODERATE (NEGATIVE) H 01/08/17 23:00 Urine Nitrate NEGATIVE (NEGATIVE) 01/08/17 23:00 Urine Bilirubin NEGATIVE (NEGATIVE) 01/08/17 23:00 Urine Urobilinogen 0.2 E.U./dL (0.2 - 1.0) 01/08/17 23:00 Ur Leukocyte Esterase NEGATIVE (NEGATIVE) 01/08/17 23:00 Urine RBC 2-5 /hpf (0-5) H 01/08/17 23:00 Urine WBC 2-5 /hpf (0-5) H 01/08/17 23:00 Ur Epithelial Cells OCCASIONAL /lpf (FEW) 01/08/17 23:00 Urine Bacteria FEW /hpf (NONE SEEN) 01/08/17 23:00 Hyaline Casts 2-5 /lpf (0-2) H 01/08/17 23:00 - Physical Exam Vitals and I&O: Vital Signs Temp 99.0 F 01/12/17 04:00 Pulse 96 01/12/17 07:58 Resp 18 01/12/17 10:33 BP 136/91 01/12/17 04:00 Pulse Ox 98 01/12/17 07:58 Intake & Output 01/11/17 01/12/17 01/12/17 18:59 06:59 18:59 Intake Total 3850 850 Balance 3850 850 Intake: Intake, IV Amount 2049 50 Cefepime 1 gm In Dextrose 50 50 5% 50 ml @ 100 mls/hr IV Q12H [facility] Rx#:[id number] Sodium Chloride 0.45% 1, 2000 000 ml @ 70 mls/hr IV . [id number] [facility] Rx#:[id number] Oral 1800 800 Other: # Voids 4 2 # Bowel Movements 1 Stool Characteristics Soft Formed Active Medications: Current Medications Acetaminophen (Tylenol) 650 mg PO Q4HR PRN PRN Reason: Mild Pain or Fever >101 Stop: 03/09/17 12:58 Last Admin: 01/10/17 22:24 Dose: 650 mg Acetylcysteine (Mucomyst 20%) 2 ml HHN Q6HRT [facility] Stop: 03/10/17 18:59 Last Admin: 01/12/17 07:58 Dose: 2 ml Albuterol Sulfate (Albuterol 2.5mg/3ml Neb Ud) 2.5 mg HHN QIDRT [facility] Stop: 03/09/17 14:59 Last Admin: 01/12/17 07:57 Dose: 2.5 mg Glipizide (Glucotrol) 10 mg PO BID [facility] Stop: 03/12/17 16:59 Last Admin: 01/12/17 09:37 Dose: 10 mg Guaifenesin (Robitussin) 200 mg PO Q4HR PRN PRN Reason: Cough or Congestion Stop: 03/09/17 12:58 Last Admin: 01/11/17 10:23 Dose: 200 mg Heparin Sodium (Porcine) (Heparin) 5,000 units SUBQ Q12HR [facility] Stop: 03/09/17 20:59 Last Admin: 01/12/17 09:37 Dose: Not Given Cefepime HCl 1 gm/ Dextrose 50 mls @ 100 mls/hr IV Q12H [facility] Stop: 03/09/17 13:59 Last Infusion: 01/12/17 01:40 Dose: Infused Sodium Chloride (Nacl 0.45%) 1,000 mls @ 70 mls/hr IV .[id number] [facility] Stop: 03/10/17 16:29 Last Admin: 01/12/17 01:13 Dose: 70 mls/hr Ibuprofen (Motrin) 800 mg PO Q6HR PRN PRN Reason: Pain (Moderate) Stop: 03/09/17 12:57 Insulin Aspart (Novolog Insulin Sliding Scale) 0 units SUBQ ACHS [facility] PRN Reason: Protocol Stop: 03/11/17 16:29 Last Admin: 01/12/17 06:31 Dose: 3 units Ipratropium [place] (Atrovent Neb 0.5mg/2.5ml) 0.5 mg HHN QIDRT [facility] Stop: 03/09/17 14:59 Last Admin: 01/12/17 07:58 Dose: 0.5 mg Meclizine HCl (Antivert) 25 mg PO DAILY PRN PRN Reason: Nausea / Vomiting Stop: 03/09/17 12:58 Methylprednisolone Sodium Succinate (Solu-Medrol) 20 mg IVP Q12HR [facility] Stop: 03/11/17 20:59 Last Admin: 01/12/17 09:38 Dose: 20 mg Ondansetron HCl (Zofran) 4 mg IV Q8H PRN PRN Reason: Nausea / Vomiting Stop: 03/09/17 12:58 Zolpidem Tartrate (Ambien) 10 mg PO HS PRN PRN Reason: Insomnia Stop: 03/09/17 12:58 Last Admin: 01/10/17 22:22 Dose: 10 mg General: alert HEENT: NC/AT, PERRLA Neck: Supple Lungs: CTAB Cardiovascular: RRR, Normal S1, Normal S2, without murmur Abdomen: soft non-tender, non-distended, positive bowel sound Internal Medicine Assmt/Plan - Assessment Assessment: COMMUNITY ACQUIRED PNA COUGH NEW ONSET DM - Plan Plan: dc planning in am iron assorter to see patient monitor glucose level bronchodilators f/u labs in am supplemental o2 Nutritional Asmnt/Malnutr-PDOC - Dietary Evaluation Malnutrition Findings (Please click <Entered> for more info): Nutritional Asmnt/Malnutrition Start: 01/11/17 11: 34 Text: Status: Complete Freq: Document 01/11/17 11:34 [facility] (Rec: 01/11/17 11:46 [facility] [id number]) Nutritional Asmnt/Malnutrition Patient General Information Nutritional Screening Consult Diagnosis Community acquired pneumonia, cough, new onset DM Subjective Information Nutrition consult for HgbA1C 7 .5 and new onset DM received and completed. Pt is a 56-year -old male, awake and alert during time of visit. Pt is a good historian and appropriate for diet education, however, follow up and reinforcement needed. Visitors at bedside. 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 Foods of choice are [place] [employer], chocolate bars , and convenience foods. Current Diet [facility]/ [facility] Patient / S.O Indicated Pertinent Medications Cefepime, Novolog, Solu-Medrol , Zofran, NaCl 0.45% Pertinent Labs (01/09) Glucose 311H, A1C 7.5H, Ammonia 68H (01/10) Glucose (fasting) 351H (01/11) Glucose (fasting) 207H (34-01/11) POC Glucose 166-443H Nutritional Hx/Data Height 5 ft 8 in Height (Calculated Centimeters) 172.7 Current Weight (lbs) 168 lb 14.4 oz Weight (Calculated Kilograms) 76.6 Weight (Calculated Grams) 34857.8 Usual body Weight (lbs) 170 % Usual Body Weight 99 [place] Body Weight 154 % [place] Body Weight 110 Recent Weight Change No Weight Status Overweight GI Symptoms GI Symptoms None Food Allergies No Cultural/Ethnic/Nondenominational Belief No cultural, ethnic, or confucianism beliefs provided. Usual diet at home Regular diet, 5-6 meals per day Skin Integrity/Comment: Dallin Chiu. Skin intact. Current %PO Good (75-100%) Estimated Nutritional Goals BEE in Kcals: Using Current wt Calories/Kcals/Kg Based on CBW 76.7 kg with consideration of pneumonia Kcals Calculated 2945-9193 kcals/day (30-35 kcals/kg) Protein: Using Current wt Protein g/kg: Based on CBW 76.7 kg with consideration of pneumonia Protein Calculated 92-115 gm/day (1.2-1.5 gm/kg) Fluid: ml 3703-1911 ml/day (1 ml/kcal) Nutritional Problem 1. Problem Problem Food, nutrition, and nutrition -related knowledge deficit related to Etiology lack of prior education as evidenced by Signs/Symptoms: pt lack of understanding of diabetes management and healthy food choices as part of disease management. Malnutrition Alert Is there a minimum of two criteria No selected? Query Text:Check all the applicable criteria. A minimum of two criteria are recommended for diagnosis of either severe or non-severe malnutrition. Malnutrition Related to Morbid Obesity Malnutrition related to morbid obesity No Intervention/Recommendation Recommendations by RD Dietary Education by RD1 Increase Calorie Intake Comments 1. Recommend CCHO-75 gm diet to better meet estimated nutritional needs and promote glycemic control. Recommend double portions of protein at meals. Expected Outcomes/Goals Expected Outcomes/Goals Pt will verbalize 2 sources of carbohydrates at follow up. Physician Parameters for PEM Normal Weight % 90% - 110% (Normal) Serum Albumin (g/dl) 3.1 - 3.4 (Mild) 01/11/17 11:45 Dietitian Notes by Denice Hough Nutrition Note Nutrition Consult and Initial Nutrition Assessment completed by Denice Hough on 01/11/17. Please refer to nutrition assessment under Patient Care tab of EMR. Education on diet and nutrition provided. Nutrition Recommendations: 1. Recommend CCHO-75 gm diet to better meet estimated nutritional needs and promote glycemic control. Recommend double portions of protein at meals. F/U in 3-5 days as Moderate risk, 01/14-01/16. Initialized on 01/11/17 11:45 - END OF NOTE
[2017-01-13] MEDS: Albuterol Nebulizer 2.5mg/3mL HHN SCH ×2 (01:04→09:52)
[2017-01-13 05:32] LABS: HEMATOCRIT 42.8 % (39.0-49.0); HEMOGLOBIN 14.8 gm/dL (13.2-17.3); MEAN CELL VOLUME 85.3 fl (80-99); MEAN CORPUSCULAR HEMOGLOBIN 29.5 pg (26.0-30.0); MEAN CORPUSCULAR HGB CONC 34.5 pg (28.0-36.0); MEAN PLATELET VOLUME 10.1 fl; PLATELET COUNT 316 Th/cmm (150-400); RED BLOOD COUNT 5.02 Mil/cmm (4.30-5.70)
[2017-01-13 05:50] LABS: ANION GAP 9.6 (7.0-16.0); BUN - UREA NITROGEN 26 mg/dL (7-25); BUN/CREATININE RATIO 28.9; CALCIUM SERUM 9.2 mg/dL (8.6-10.3); CARBON DIOXIDE 26.9 mEq/L (21.0-31.0); CHLORIDE 102 mEq/L (98-107); CREATININE - SERUM 0.9 mg/dL (0.7-1.3); GLUCOSE 209 mg/dL (70-105); POTASSIUM SERUM 4.5 mEq/L (3.5-5.1); SODIUM SERUM 134 mEq/L (136-145)
[2017-01-13 06:00] LABS: WHITE BLOOD COUNT 20.3 Th/cmm (4.8-10.8)
[2017-01-13] MEDS: INSULIN ASPART SLIDING SCALE 100 UNITS/ML UNIT SUBQ SCH ×2 (06:38→12:10)
[2017-01-13 09:07] LABS: BAND NEUTROPHILE 3 % (0-10); NEUTROPHILS 82 % (40-80); TOTAL CELLS COUNTED 100
[2017-01-13 09:08] LABS: PLATELET ESTIMATE ADEQUATE (NORMAL); PLATELET MORPHOLOGY NORMAL (NORMAL)
[2017-01-13] MEDS: methylPREDNISolone SS 40 mg Vial IVP SCH (09:37)
[2017-01-13] MEDS: Ipratropium Neb 0.5 mg/2.5 mL UD HHN SCH (09:51)
--- NOTE | 2017-01-13 11:30 | Internal Medicine Prog Note ---
Internal Medicine Subjective - Subjective Service Date: 01/13/17 (dc summary [id number]) Internal Medicine Objective - Results Result Diagrams: 01/13/17 05:00 01/13/17 05:00 Recent Labs: Laboratory Last Values WBC 20.3 Th/cmm (4.8-10.8) H* 01/13/17 05:00 RBC 5.02 Mil/cmm (4.30-5.70) 01/13/17 05:00 Hgb 14.8 gm/dL (13.2-17.3) 01/13/17 05:00 Hct 42.8 % (39.0-49.0) 01/13/17 05:00 MCV 85.3 fl (80-99) 01/13/17 05:00 MCH 29.5 pg (26.0-30.0) 01/13/17 05:00 MCHC Differential 34.5 pg (28.0-36.0) 01/13/17 05:00 RDW 13.0 % (11.5-20.0) 01/13/17 05:00 Plt Count 316 Th/cmm (150-400) 01/13/17 05:00 MPV 10.1 fl 01/13/17 05:00 Band Neutrophils % 3 % (0-10) 01/13/17 05:00 Neutrophils (Manual) 82 % (40-80) H 01/13/17 05:00 Lymphocytes 8 % (20-50) L 01/13/17 05:00 Monocytes 7 % (2-10) 01/13/17 05:00 Platelet Estimate ADEQUATE (NORMAL) 01/13/17 05:00 Platelet Morphology NORMAL (NORMAL) 01/13/17 05:00 Anisocytosis 1+ 01/11/17 05:50 RBC Morph Micro Appear NORMAL (NORMAL) 01/13/17 05:00 Sodium 134 mEq/L (136-145) L 01/13/17 05:00 Potassium 4.5 mEq/L (3.5-5.1) 01/13/17 05:00 Chloride 102 mEq/L (98-107) 01/13/17 05:00 Carbon Dioxide 26.9 mEq/L (21.0-31.0) 01/13/17 05:00 Anion Gap 9.6 (7.0-16.0) 01/13/17 05:00 BUN 26 mg/dL (7-25) H 01/13/17 05:00 Creatinine 0.9 mg/dL (0.7-1.3) 01/13/17 05:00 Est GFR ( Amer) > 60.0 ml/min (>90) 01/13/17 05:00 Est GFR (Non-Af Amer) > 60.0 ml/min 01/13/17 05:00 BUN/Creatinine Ratio 28.9 01/13/17 05:00 Glucose 209 mg/dL (70-105) H 01/13/17 05:00 POC Glucose 174 MG/DL (70 - 105) H 01/13/17 06:33 Hemoglobin A1c % 7.5 % (4.0-6.0) H 01/09/17 06:23 Calcium 9.2 mg/dL (8.6-10.3) 01/13/17 05:00 Magnesium 2.1 mg/dL (1.9-2.7) 01/12/17 05:40 Total Bilirubin 0.4 mg/dL (0.3-1.0) 01/09/17 06:23 AST 14 U/L (13-39) 01/09/17 06:23 ALT 26 U/L (7-52) 01/09/17 06:23 Alkaline Phosphatase 94 U/L (34-104) 01/09/17 06:23 Ammonia 68 umol/L (16-53) H 01/09/17 06:23 Total Protein 6.8 gm/dL (6.0-8.3) 01/09/17 06:23 Albumin 3.1 gm/dL (4.2-5.5) L 01/09/17 06:23 Globulin 3.7 gm/dL 01/09/17 06:23 Albumin/Globulin Ratio 0.8 (1.0-1.8) L 01/09/17 06:23 Vitamin B12 641 pg/mL (211-946) 01/09/17 06:23 Folic Acid 19.4 ng/mL (>3.0) 01/09/17 06:23 TSH 0.91 uIU/ml (0.34-5.60) 01/09/17 06:23 Urine Source CLEAN C 01/08/17 23:00 Urine Color YELLOW 01/08/17 23:00 Urine Clarity CLEAR (CLEAR) 01/08/17 23:00 Urine pH 5.0 01/08/17 23:00 Ur Specific [place] 1.020 (1.005-1.030) 01/08/17 23:00 Urine Protein >300 mg/dL (NEGATIVE) H 01/08/17 23:00 Urine Glucose (UA) NEGATIVE mg/dL (NEGATIVE) 01/08/17 23:00 Urine Ketones NEGATIVE mg/dL (NEGATIVE) 01/08/17 23:00 Urine Blood MODERATE (NEGATIVE) H 01/08/17 23:00 Urine Nitrate NEGATIVE (NEGATIVE) 01/08/17 23:00 Urine Bilirubin NEGATIVE (NEGATIVE) 01/08/17 23:00 Urine Urobilinogen 0.2 E.U./dL (0.2 - 1.0) 01/08/17 23:00 Ur Leukocyte Esterase NEGATIVE (NEGATIVE) 01/08/17 23:00 Urine RBC 2-5 /hpf (0-5) H 01/08/17 23:00 Urine WBC 2-5 /hpf (0-5) H 01/08/17 23:00 Ur Epithelial Cells OCCASIONAL /lpf (FEW) 01/08/17 23:00 Urine Bacteria FEW /hpf (NONE SEEN) 01/08/17 23:00 Hyaline Casts 2-5 /lpf (0-2) H 01/08/17 23:00 - Physical Exam Vitals and I&O: Vital Signs Temp 98.4 F 01/13/17 08:00 Pulse 92 01/13/17 08:00 Resp 20 01/13/17 08:00 BP 135/84 01/13/17 08:00 Pulse Ox 98 01/13/17 08:00 Intake & Output 01/12/17 01/13/17 01/13/17 18:59 06:59 18:59 Intake Total 850 800 Output Total 1 Balance 850 799 Intake: Intake, IV Amount 50 Cefepime 1 gm In Dextrose 50 5% 50 ml @ 100 mls/hr IV Q12H [facility] Rx#:[id number] Oral 800 800 Output: Stool 1 Other: # Voids 2 4 Active Medications: Current Medications Acetaminophen (Tylenol) 650 mg PO Q4HR PRN PRN Reason: Mild Pain or Fever >101 Stop: 03/09/17 12:58 Last Admin: 01/10/17 22:24 Dose: 650 mg Acetylcysteine (Mucomyst 20%) 2 ml HHN Q6HRT [facility] Stop: 03/14/17 12:59 Albuterol Sulfate (Albuterol 2.5mg/3ml Neb Ud) 2.5 mg HHN QIDRT [facility] Stop: 03/09/17 14:59 Last Admin: 01/13/17 09:52 Dose: 2.5 mg Glipizide (Glucotrol) 10 mg PO BID [facility] Stop: 03/12/17 16:59 Last Admin: 01/13/17 09:08 Dose: 10 mg Guaifenesin (Robitussin) 200 mg PO Q4HR PRN PRN Reason: Cough or Congestion Stop: 03/09/17 12:58 Last Admin: 01/11/17 10:23 Dose: 200 mg Heparin Sodium (Porcine) (Heparin) 5,000 units SUBQ Q12HR [facility] Stop: 03/09/17 20:59 Last Admin: 01/13/17 09:09 Dose: Not Given Cefepime HCl 1 gm/ Dextrose 50 mls @ 100 mls/hr IV Q12H [facility] Stop: 03/09/17 13:59 Last Admin: 01/13/17 01:31 Dose: 100 mls/hr Sodium Chloride (Nacl 0.45%) 1,000 mls @ 70 mls/hr IV .[id number] [facility] Stop: 03/10/17 16:29 Last Admin: 01/12/17 01:13 Dose: 70 mls/hr Ibuprofen (Motrin) 800 mg PO Q6HR PRN PRN Reason: Pain (Moderate) Stop: 03/09/17 12:57 Insulin Aspart (Novolog Insulin Sliding Scale) 0 units SUBQ ACHS [facility] PRN Reason: Protocol Stop: 03/11/17 16:29 Last Admin: 01/13/17 06:38 Dose: 3 units Ipratropium [place] (Atrovent Neb 0.5mg/2.5ml) 0.5 mg HHN QIDRT [facility] Stop: 03/09/17 14:59 Last Admin: 01/13/17 09:51 Dose: 0.5 mg Meclizine HCl (Antivert) 25 mg PO DAILY PRN PRN Reason: Nausea / Vomiting Stop: 03/09/17 12:58 Methylprednisolone Sodium Succinate (Solu-Medrol) 20 mg IVP Q12HR [facility] Stop: 03/11/17 20:59 Last Admin: 01/13/17 09:37 Dose: 20 mg Ondansetron HCl (Zofran) 4 mg IV Q8H PRN PRN Reason: Nausea / Vomiting Stop: 03/09/17 12:58 Zolpidem Tartrate (Ambien) 10 mg PO HS PRN PRN Reason: Insomnia Stop: 03/09/17 12:58 Last Admin: 01/10/17 22:22 Dose: 10 mg Internal Medicine Assmt/Plan - Assessment Assessment: COMMUNITY ACQUIRED PNA COUGH NEW ONSET DM Nutritional Asmnt/Malnutr-PDOC - Dietary Evaluation Malnutrition Findings (Please click <Entered> for more info): Nutritional Asmnt/Malnutrition Start: 01/11/17 11: 34 Text: Status: Complete Freq: Document 01/11/17 11:34 [facility] (Rec: 01/11/17 11:46 [facility] [id number]) Nutritional Asmnt/Malnutrition Patient General Information Nutritional Screening Consult Diagnosis Community acquired pneumonia, cough, new onset DM Subjective Information Nutrition consult for HgbA1C 7 .5 and new onset DM received and completed. Pt is a 56-year -old male, awake and alert during time of visit. Pt is a good historian and appropriate for diet education, however, follow up and reinforcement needed. Visitors at bedside. 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 Foods of choice are [employer], chocolate bars , and convenience foods. Current Diet Order/ [facility] / S.[facility] Indicated Pertinent Medications Cefepime, Novolog, Solu-Medrol , Zofran, NaCl 0.45% Pertinent Labs (3/3) Glucose 311H, A1C 7.5H, Ammonia 68H (3/4) Glucose (fasting) 351H (3/5) Glucose (fasting) 207H (3/4-3/5) POC Glucose 166-443H Nutritional Hx/Data Height 5 ft 8 in Height (Calculated Centimeters) 172.7 Current Weight (lbs) 168 lb 14.4 oz Weight (Calculated Kilograms) 76.6 Weight (Calculated Grams) 02571.8 Usual body Weight (lbs) 170 % Usual Body Weight 99 [place] Body Weight 154 % [place] Body Weight 110 Recent Weight Change No Weight Status Overweight GI Symptoms GI Symptoms None Food Allergies No Cultural/Ethnic/Pentecostalism Belief No cultural, ethnic, or lutheran beliefs provided. Usual diet at home Regular diet, 5-6 meals per day Skin Integrity/Comment: Dallin Chiu. Skin intact. Current %PO Good (75-100%) Estimated Nutritional Goals BEE in Kcals: Using Current wt Calories/Kcals/Kg Based on CBW 76.7 kg with consideration of pneumonia Kcals Calculated 5583-5077 kcals/day (30-35 kcals/kg) Protein: Using Current wt Protein g/kg: Based on CBW 76.7 kg with consideration of pneumonia Protein Calculated 92-115 gm/day (1.2-1.5 gm/kg) Fluid: ml 7688-3209 ml/day (1 ml/kcal) Nutritional Problem 1. Problem Problem Food, nutrition, and nutrition -related knowledge deficit related to Etiology lack of prior education as evidenced by Signs/Symptoms: pt lack of understanding of diabetes management and healthy food choices as part of disease management. Malnutrition Alert Is there a minimum of two criteria No selected? Query Text:Check all the applicable criteria. A minimum of two criteria are recommended for diagnosis of either severe or non-severe malnutrition. Malnutrition Related to Morbid Obesity Malnutrition related to morbid obesity No Intervention/Recommendation Recommendations by RD Dietary Education by RD1 Increase Calorie Intake Comments 1. Recommend CCHO-75 gm diet to better meet estimated nutritional needs and promote glycemic control. Recommend double portions of protein at meals. Expected Outcomes/Goals Expected Outcomes/Goals Pt will verbalize 2 sources of carbohydrates at follow up. Physician Parameters for PEM Normal Weight % 90% - 110% (Normal) Serum Albumin (g/dl) 3.1 - 3.4 (Mild) 01/11/17 11:45 Dietitian Notes by Denice Hough Nutrition Note Nutrition Consult and Initial Nutrition Assessment completed by Denice Hough on 01/11/17. Please refer to nutrition assessment under Patient Care tab of EMR. Education on diet and nutrition provided. Nutrition Recommendations: 1. Recommend CCHO-75 gm diet to better meet estimated nutritional needs and promote glycemic control. Recommend double portions of protein at meals. F/U in 3-5 days as Moderate risk, 3-01/16. Initialized on 01/11/17 11:45 - END OF NOTE
--- NOTE | 2017-01-13 19:47 | Discharge Summary ---
FINAL DIAGNOSES: Community-acquired pneumonia, which has improved; cough, and new onset of diabetes. HISTORY OF PRESENT ILLNESS: This is a 56-year-old male, who came here to [facility] for shortness of breath and productive cough and x1 fever. PHYSICAL EXAMINATION: GENERAL: The patient is well developed, well nourished, in no acute distress. VITAL SIGNS: Stable. HEAD: Normocephalic, atraumatic. NECK: Supple. No mass. LUNGS: Clear. CARDIOVASCULAR: Regular rate and rhythm. ABDOMEN: Soft, nontender, and nondistended. HOSPITAL COURSE: During the hospital stay, the patient was admitted to the telemetry unit. The patient was on IV antibiotics, on Maxipime, and also bronchodilators, and also Mucomyst. The patient was kept on IV fluids for hydration. The patient's glucose level was elevated at 235. The patient was started on glipizide; also a dietitian was seeing the patient for the patient's diet. The patient had a CT of the chest done and the impression is [id number] bilateral pleural effusions, ____ infiltrate within the lower lobes. Also, a repeat chest x-ray was done on 01/12/2017; the impression is no acute abnormalities. For this reason, the patient was stable for discharge. CONDITION UPON DISCHARGE: Fair. DISPOSITION: The patient is going home. Educated the patient the importance of following up with PCP in 1 week and also to comply with the patient's new onset of diabetes. The patient understood and verbalized. [facility]# [id number]
--- NOTE | 2017-02-19 16:37 | History & Physical ---
ADMIT DATE: 01/08/2017 CHIEF COMPLAINT: Increased shortness of breath. HISTORY OF PRESENT ILLNESS: This is a 56-year-old male with history of COPD, chronic smoker, was seen initially at [facility] secondary to increasing shortness of breath even with taking a shower, he felt short of breath, unable to breathe. The patient was diagnosed with pneumonia during the admission, he was transferred for further management. PAST MEDICAL HISTORY: As mentioned in history of present illness. PAST SURGICAL HISTORY: He denies. ALLERGIES: No known drug allergies. MEDICATIONS: Motrin. FAMILY HISTORY: Noncontributory. SOCIAL HISTORY: Smokes since age 13, a pack per day, drinks on the weekends, abuses marijuana. 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 REVIEW OF SYSTEMS: GENERAL: Complains not feeling well. HEENT: No blurred vision. NECK: No neck pain. LUNGS: ____ asthma, the patient with possible COPD. HEART: ____ coronary artery disease. The patient was still with elevated blood pressure, put on medication. ABDOMEN: No nausea, vomiting, or abdominal pain. GENITOURINARY: The patient denies any increased frequency or dysuria. NEUROLOGIC: No headache, seizure, or syncope. PSYCHIATRIC: ____. PHYSICAL EXAMINATION: VITAL SIGNS: Blood pressure 139/88, respirations 19, pulse 95 and temperature 97.9. GENERAL: Middle aged male, appears acutely ill. NECK: Supple. LUNGS: Decreased breath sounds. ____ rhonchi. HEART: Regular rate and rhythm without appreciable murmurs. ABDOMEN: Soft, nontender. ____. ____. NEUROLOGIC: Limited. LABORATORY DATA: Pending. ASSESSMENT AND PLAN: 1. Pneumonia. 2. Chronic obstructive pulmonary disease exacerbation. ____ debilitation. We will continue ____ IV steroids on the patient besides IV antibiotics. 4. ____ treatment ____. Reviewed chest x-ray, may consider CT of the chest. We will continue following the patient closely. JOB# [id number]
== END 2017-01-13 14:00 | disposition home or self-care (01) | DRG 720 ==
LOC: TELE 11:30
PROVIDERS: ADMIT Internal Medicine; ATTEND Internal Medicine
DX: A41.9 Sepsis, unspecified organism (principal); E43 Unspecified severe protein-calorie malnutrition; J18.9 Pneumonia, unspecified organism; J44.0 Chronic obstructive pulmonary disease with (acute) lower respiratory infection; J44.9 Chronic obstructive pulmonary disease, unspecified; F17.210 Nicotine dependence, cigarettes, uncomplicated; F12.10 Cannabis abuse, uncomplicated; E11.9 Type 2 diabetes mellitus without complications
CPT/HCPCS: 36415-UA; 71010-TC; 71250-TC; 80048-TC; 80053-TC; 81001-TC; 82140-TC; 82607-90; 82746-90; 82947-TC; 82948-90; 83036-90; 83735-TC; 84443-TC; 85007-TC; 85027-TC; 90779; 94640; 94667; 94668; 94760; J0692; J1644; J1815; J2920; J7613; Z7610